=== PATIENT | male | born 1965 ===

== ENCOUNTER 2018-06-08 21:22 | Emergency (ER) | payer SELFPAY ==
--- NOTE | 2018-06-08 21:47 | ED PDOC ---
HPI: Chest Pain Time Seen by Provider: 06/08/18 21:36 Chief Complaint (Nursing): Headache History Per: Patient Onset/Duration Of Symptoms: Days (1) Current Symptoms Are (Timing): Intermittent Episodes Severity: Mild Quality: Tightness Additional Complaint(s): Chest tightness, occurred after arguing with family members. Has had previous similar episode attributed to panic attack. Past Medical History Vital Signs: Last Vital Signs Temp 98.0 F 06/08/18 21:26 Pulse 98 H 06/08/18 21:26 Resp 16 06/08/18 21:26 BP 153/99 H 06/08/18 21:26 Pulse Ox 98 06/08/18 21:47 - Medical History PMH: Anxiety, Depression Denies: Chronic Kidney Disease - Family History Family History: States: Unknown Family Hx - Immunization History Hx Tetanus Toxoid Vaccination: No Hx Influenza Vaccination: No Hx Pneumococcal Vaccination: No - Home Medications Home Medications: Ambulatory Orders Medication Instructions Recorded Omeprazole [Prilosec] 40 mg PO DAILY 01/31/16 Naproxen [Naprosyn] 500 mg PO BID PRN #20 tablet 02/25/16 Cyclobenzaprine [Cyclobenzaprine 10 mg PO Q8 PRN #14 tab 11/03/17 HCl] Naproxen [Naprosyn] 500 mg PO BID PRN #30 tab 11/03/17 - Allergies Allergies/Adverse Reactions: Allergies Allergy/AdvReac Type Severity Reaction Status Date / Time amoxicillin Allergy Mild RASH Verified 06/08/18 21:26 Penicillins Allergy RASH Verified 06/08/18 21:26 Review of Systems ROS Statement: Except As Marked, All Systems Reviewed And Found Negative Cardiovascular: Positive for: Chest Pain Psych: Positive for: Anxiety Physical Exam - Reviewed Nursing Documentation Reviewed: Yes Vital Signs Reviewed: Yes - Physical Exam Appears: Positive for: Non-toxic, No Acute Distress Head Exam: Positive for: ATRAUMATIC, NORMAL INSPECTION, NORMOCEPHALIC Skin: Positive for: Normal Color, Warm, DRY Eye Exam: Positive for: EOMI, Normal appearance, PERRL ENT: Positive for: Normal ENT Inspection Neck: Positive for: Normal, Painless ROM Cardiovascular/Chest: Positive for: Regular Rate, Rhythm Respiratory: Positive for: CNT, Normal Breath Sounds Gastrointestinal/Abdominal: Positive for: Normal Exam, Soft Back: Positive for: Normal Inspection Extremity: Positive for: Normal ROM Neurologic/Psych: Positive for: Alert, Oriented - ECG O2 Sat by Pulse Oximetry: 98 Disposition - Clinical Impression Clinical Impression: Anxiety - Patient ED Disposition Is Patient to be Admitted: Transfer of Care - Disposition Disposition: Transfer of Care Disposition Time: 23:52 Condition: FAIR Forms: [facility] (Citizen [place]) Patient Signed Over To: Marily Morales
--- NOTE | 2018-06-09 00:21 | ED PDOC ---
- ECG O2 Sat by Pulse Oximetry: 98 (RA) Pulse Ox Interpretation: Normal Medical Decision Making Medical Decision Makin:00 --Care endorsed to me by Dr. Jacobson pending crisis evaluation, reevaluation and final disposition. 00:30 --Patient has been evaluated by crisis. Diagnosis is anxiety as per Dr. Lucero. He is stable and will be discharged home. Follow up with outpatient treatment. Scribe Attestation: Documented by Sharifa Ferrell, acting as a scribe for Marily Segovia MD Provider Scribe Attestation: All medical record entries made by the Scribe were at my direction and personally dictated by me. I have reviewed the chart and agree that the record accurately reflects my personal performance of the history, physical exam, medical decision making, and the department course for this patient. I have also personally directed, reviewed, and agree with the discharge instructions and disposition. Disposition Counseled Patient/Family Regarding: Studies Performed, Diagnosis, Need For Followup - Clinical Impression Clinical Impression: Anxiety - POA Present On Arrival: None - Disposition Referrals: [facility] [Outside] Disposition: Routine/Home Disposition Time: 00:30 Condition: GOOD Additional Instructions: SARBJIT BARRERA, thank you for letting us take care of you today. Your provider was Marily Morales MD and you were treated for LT ARM NUMBNESS HEADACHE. The emergency medical care you received today was directed at your acute symptoms. If you were prescribed any medication, please fill it and take as directed. It may take several days for your symptoms to resolve. Return to the Emergency Department if your symptoms worsen, do not improve, or if you have any other problems. Please contact your doctor or call one of the physicians/clinics you have been referred to that are listed on the Patient Visit Information form that is included in your discharge packet. Bring any paperwork you were given at discharge with you along with any medications you are taking to your follow up visit. Our treatment cannot replace ongoing medical care by a primary care provider outside of the emergency department. Thank you for allowing the [facility] team to be part of your care today. If you had an X-Ray or CT scan: A Radiologist will review the ED reading if any change in treatment is needed we will contact you. If you had a blood, urine, or wound culture: It will take several days for the results, if any change in treatment is needed we will contact you. If you had an STI test: It will take 48 hours for the results. Please call after 1 week if you have not heard back. Instructions: Anxiety, Adult (DC)
[2018-06-09 01:26] VITALS: BP 146/91; PULSE 81; RESP 17; TEMP 98.5; O2SAT 100
--- NOTE | 2018-06-09 12:22 | CARD ---
APPROVED REPORT Date of service: 06/08/2018 <Conclusion> Normal sinus rhythm Normal ECG
== END 2018-06-09 01:25 | disposition home or self-care (01) ==
LOC: H.ER 21:22
DX: F41.9 Anxiety disorder, unspecified (principal); Z86.59 Personal history of other mental and behavioral disorders; Z88.0 Allergy status to penicillin

== ENCOUNTER 2019-03-02 19:10 | Emergency (ER) | payer SELFPAY ==
[2019-03-02 19:21] VITALS: O2SAT 96
--- NOTE | 2019-03-02 20:10 | ED PDOC ---
HPI: Male Pain Time Seen by Provider: 03/02/19 19:30 Chief Complaint (Nursing): Groin Pain Chief Complaint (Provider): Groin pain History Per: Patient History/Exam Limitations: no limitations Onset/Duration Of Symptoms: Days (3x) Current Symptoms Are (Timing): Still Present Severity: Moderate Additional Complaint(s): 54 year old male with a past medical history of depression presents to the ED for an evaluation of groin discomfort intermittent for 3x days but worse today after masturbating. Patient states that he has been doing a lot of heavy lifting, transporting his mother as she needs assistance. Patient states that today he noticed a swelling on left side of his testicle and is concerned about it. 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 PMD: Adithya Carlton MD Past Medical History Reviewed: Historical Data, Nursing Documentation, Vital Signs Vital Signs: Last Vital Signs Temp 98 F 03/02/19 19:17 Pulse 79 03/02/19 19:17 Resp 18 03/02/19 19:17 BP 146/82 03/02/19 19:17 Pulse Ox 96 03/02/19 19:17 MARY ELLEN Report Viewed: Yes Primary Care Provider: FAMILY PROVIDER,NO - Medical History PMH: Anxiety, Depression Denies: Diabetes, Hepatitis, HIV, HTN, Chronic Kidney Disease, Seizures, Sexually Transmitted Disease - Surgical History Other surgeries: left knee - Family History Family History: States: No Known Family Hx - Social History Current smoker - smoking cessation education provided: No Alcohol: Occasional Drugs: Denies - Immunization History Hx Tetanus Toxoid Vaccination: No Hx Influenza Vaccination: No Hx Pneumococcal Vaccination: No - Home Medications Home Medications: Ambulatory Orders Medication Instructions Recorded Omeprazole [Prilosec] 40 mg PO DAILY 01/31/16 Naproxen [Naprosyn] 500 mg PO BID PRN #20 tablet 02/25/16 Cyclobenzaprine [Cyclobenzaprine 10 mg PO Q8 PRN #14 tab 11/03/17 HCl] Naproxen [Naprosyn] 500 mg PO BID PRN #30 tab 11/03/17 - Allergies Allergies/Adverse Reactions: Allergies Allergy/AdvReac Type Severity Reaction Status Date / Time amoxicillin Allergy Mild RASH Verified 06/08/18 21:26 Penicillins Allergy RASH Verified 06/08/18 21:26 Review of Systems ROS Statement: Except As Marked, All Systems Reviewed And Found Negative Constitutional: Negative for: Fever Gastrointestinal: Negative for: Vomiting Genitourinary Male: Positive for: Other (intermittent groin pain, small bump on foreskin) Physical Exam - Reviewed Nursing Documentation Reviewed: Yes Vital Signs Reviewed: Yes - Physical Exam Appears: Positive for: Well, Non-toxic, No Acute Distress Head Exam: Positive for: ATRAUMATIC, NORMOCEPHALIC Skin: Positive for: Normal Color, Warm, Dry Eye Exam: Positive for: Normal appearance Neck: Positive for: Normal Cardiovascular/Chest: Positive for: Regular Rate, Rhythm Respiratory: Positive for: Normal Breath Sounds Gastrointestinal/Abdominal: Positive for: Bowel Sounds, Soft, Tenderness (mild suprapubic tenderness) Male Genital Exam: Positive for: normal genitalia, other (high school science tutor: Nurse Brandie. exam: uncircumcised, skin able to be retracted, (-) skin discoloration, (-) hematoma, non tender. exam done in the presence of RN brandie) Extremity: Positive for: Normal ROM Neurological/Psych: Positive for: Awake, Alert, Oriented (3x) - Laboratory Results Result Diagrams: 03/02/19 20:05 03/02/19 20:05 - ECG O2 Sat by Pulse Oximetry: 96 (RA) Pulse Ox Interpretation: Normal Medical Decision Making Medical Decision Makin:37 Initial impression: 54 year old male with groin discomfort rule out torsion, epidydmitis, uti Initial plan: * US testes duplex complete * CMP * CBC with differential * urine c&s * urinalysis * toradol 15 mg IVP once * reevaluation 20:43 Labs reviewed urine: negative LFTs slightly elevated 20:55 US testes read and reviewed by radiologist Findings Right Testicle Measures 4.65 x 3.04 x 2.02 cm. Normal echotexture and flow. Right Epididymis Epididymal head measures 0.73 x 1.1 x 0.84 cm. Grossly unremarkable appearance with normal flow. Left Testicle Measures 4.87 x 2.64 x 2.07 cm. Normal echotexture and flow. Left Epididymis Epididymal head measures 0.79 x 1.29 x 0.75 cm. Epididymal cyst measures 0.43 cm. Hydrocele None. Varicocele Bilateral Impression 1. Bilateral varicoceles. 2. Left epididymal cyst. 3. No evidence of torsion. 20:59 Explained results of labs and imaging to patient. pt is comfortabel in bed, in no distress. awake and alert. Patient is medically stable, and requires no further treatment in the ED at this time. Patient will be discharged home with instructions to follow up with urologist. Counseling was provided and all questions were answered regarding diagnosis. There is agreement to discharge plan. Return if symptoms persist or worsen. Scribe Attestation: Documented by Emely Cespedes, acting as a scribe for Cecilio Mcneal MD. Provider Scribe Attestation: All medical record entries made by the Scribe were at my direction and personally dictated by me. I have reviewed the chart and agree that the record accurately reflects my personal performance of the history, physical exam, medical decision making, and the department course for this patient. I have also personally directed, reviewed, and agree with the discharge instructions and disposition. Disposition - Clinical Impression Clinical Impression: Groin pain, Varicocele, Epididymal cyst - Patient ED Disposition Is Patient to be Admitted: No Counseled Patient/Family Regarding: Studies Performed, Diagnosis, Need For Followup - Disposition Referrals: [facility] [Outside] Maurice Roldan Jr., MD [Staff Provider] - Disposition: Routine/Home Disposition Time: 20:59 Condition: IMPROVED Additional Instructions: follow up with urologist as an outpatient within 1-2 days take motrin for pain return to the ED with any worsening or concerning symptoms Instructions: Varicocele Forms: [employer] ([place])
[2019-03-02 20:11] LABS: BASO # 0.1 K/uL (0.0-0.2); BASO % 0.9 % (0.0-2.0); EOS # 0.2 K/uL (0.0-0.7); EOS % 3.2 % (0.0-4.0); HEMOGLOBIN 14.8 g/dL (12.0-18.0); LYMPH # 3.1 K/uL (1.0-4.3); LYMPH % 41.5 % (20.0-40.0); MEAN CELL VOLUME 86.7 fl (80.0-94.0); MEAN CORPUSCULAR HEMOGLOBIN 30.3 pg (27.0-31.0); MEAN PLATELET VOLUME 9.4 fl (7.2-11.7); MONO # 0.5 K/uL (0.0-0.8); MONO % 6.7 % (0.0-10.0); NEUT # 3.6 K/uL (1.8-7.0); NEUT % 47.7 % (50.0-75.0); NRBC % 0.1 % (0.0-0.0); RBC 4.87 Mil/uL (4.40-5.90); RED CELL DISTRIBUTION WIDTH 13.3 % (11.5-14.5); WHITE BLOOD COUNT 7.5 K/uL (4.8-10.8)
[2019-03-02 20:13] LABS: URINE BILIRUBIN NEGATIVE (NEGATIVE); URINE BLOOD NEGATIVE (NEGATIVE); URINE CLARITY CLEAR (Clear); URINE COLOR YELLOW (YELLOW); URINE GLUCOSE (UA) NEG (NEGATIVE); URINE LEUKOCYTE ESTERASE NEG Leu/uL (Negative); URINE PROTEIN NEGATIVE (NEGATIVE); URINE UROBILINOGEN 0.2-1.0 mg/dL (0.2-1.0)
[2019-03-02 20:22] LABS: BLOOD UREA NITROGEN 16 mg/dl (9-20); CALCIUM 8.8 mg/dL (8.4-10.2); GFR NON-AFRICAN AMERICAN > 60
[2019-03-02 20:23] LABS: ALB/GLOB RATIO 1.4 (1.0-2.1); ALBUMIN 4.5 g/dL (3.5-5.0); ALT/SGPT 73 U/L (21-72); AST/SGOT 67 U/L (17-59)
[2019-03-02 21:38] VITALS: BP 147/96; PULSE 74; RESP 14; TEMP 98.1
--- NOTE | 2019-03-03 11:43 | US ---
Date of service: 03/02/2019 HISTORY: tesctiuclar pain TECHNIQUE: Realtime sonography through the scrotum with color and doppler flow. COMPARISON: Scrotal ultrasound 02/25/2016. FINDINGS: RIGHT TESTICLE: Measures 4.7 x 3.0 x 2.0 cm. Normal echotexture and flow. RIGHT EPIDIDYMIS: Epididymal head measures 0.7 x 1.1 x 0.8 cm. Grossly unremarkable appearance with normal flow. LEFT TESTICLE: Measures 4.9 x 2.6 x 2.1 cm. Normal echotexture and flow. LEFT EPIDIDYMIS: Epididymal head measures 0.8 x 1.3 x 0.8 cm. Solitary epididymal cyst is identified at the left epididymal head measures 0.4 cm greatest dimension, not previously seen. HYDROCELE: None. VARICOCELE: [id number] right varicocele reiterated. None is seen at the left. OTHER FINDINGS: None. IMPRESSION: No evidence of testicular torsion or testicular cystic or solid mass bilaterally. [id number] right varicocele reiterated. Interval small left epididymal head cyst identified.
== END 2019-03-02 21:25 | disposition home or self-care (01) ==
LOC: H.ER 19:10
DX: R10.30 Lower abdominal pain, unspecified (principal); I86.1 Scrotal varices; N50.3 Cyst of epididymis; Z86.59 Personal history of other mental and behavioral disorders; Z88.0 Allergy status to penicillin
CPT/HCPCS: 80053; 81003; 85025; 87086; 93975; 96374; 99282; J1885